=== PATIENT | female | born 1950 ===

== ENCOUNTER 2020-05-20 10:47 | Outpatient (REF) | payer MEDICARE, OTHER, SELFPAY ==
--- NOTE | 2020-05-21 08:55 | MHC.AU.P13 ---
Adult Audiological Evaluation Date of Visit: 05/20/20 Reason for Appointment: History of hearing loss. Patient arrives to determine if there has been a change in hearing. 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 Otoscopy: Right Ear: Unremarkable Left Ear: Unremarkable Tympanometry: Tympanometry performed due to: To assess integrity of the middle ear system Right Ear: Normal Middle Ear System (Type A) Left Ear: Hypercompliant Middle Ear System (Type Ad) Hearing Evaluation: Transducer(s) Used: Circumaural Headphones Method: Conventional Audiometry Stimuli Used: Pure Tones Right Ear: Description of Hearing: Normal sloping to moderate/moderately-severe sensorineural hearing loss Left Ear: Description of Hearing: Normal sloping to moderate/moderately-severe sensorineural hearing loss Speech Recognition Threshold (SRT): Method Used: Recorded Lists Stimuli Used: Spondee Words Right Ear: 25 dBHL Left Ear: 20 dBHL Word Discrimination: Method: Recorded Lists Word Lists Used: NU-6 Right Ear: 100% at 65 dBHL Left Ear: 96% at 60 dBHL Most Comfortable Level (MCL): Right Ear: 65 dBHL Left Ear: 60 dBHL QuickSIN: 1 dB SNR loss Comparison: Compared to the most recent evaluation: Overall, hearing is stable. Low frequency thresholds slightly improved, likely because patient was experiencing congestion at the last visit. Recommendations: Audiological re-evaluation in one year. Patient is considering amplification, but would rather do so after the COVID-19 pandemic has started to resolve. Because of the pandemic, she reports she is not in many noisy or social situations. She is also concerned about use of the hearing aids with masks. She is welcome to schedule a hearing aid evaluation when she feels she is ready; otherwise, we can re-visit the topic of amplification at her next audiological evaluation. Diagnosis: Primary Diagnosis: H90.3 Bilateral Sensorineural Hearing Loss Services Performed: Services Performed: Comprehensive Audiological Evaluation (CPT 99806), Tympanometry (CPT 36280) Signature: Provider: Mamta Magallanes, CCC-A
== END 2020-05-20 10:48 | disposition home or self-care (01) ==
LOC: HO.SH 10:47
PROVIDERS: Visit Provider Internal Medicine
DX: H90.3 Sensorineural hearing loss, bilateral (principal)
CPT/HCPCS: 92557; 92567